=== PATIENT | female | born 1960 | race Caucasian/White ===

== ENCOUNTER 2025-10-27 08:30 | Outpatient (RCR) | payer OTHER, SELFPAY ==
--- NOTE | 2025-10-20 08:09 | PTNOTE_ITS ---
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 Since then it is painful especially at night and the pain interrupts sleep. Also when she reaches [place], lifts things like a soda and doing HH chores. PMH: Meniere's, high cholesterol, HTN, allergies Pt goal: to get rid of the pain Objective: R shoulder AROM: ? FF: 95 deg start of pain, 145 deg end range ? Abd: 95 deg with pain ? ER: 65 deg ? HBB: to R glute with pain ? Strength: 3+/5 in all planes ? PROM: end-range pain with capsular tightness ? painful arc: positive ? Empty can: positive ? Brush Bakari: positive ? Ruba's: positive Assessment: Pt presentation consistent with R shoulder impingement and had positive impingement testing today. Pt requires skilled therapy and has fair rehab potential to meet goals. PT recommends further diagnostic imaging of R shoulder such as MRI. 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 Ind with HEP ? 2. Improved AROM of R shoulder to at least 125 deg abduction and 90 deg ? ER ? 3. Improved HH chore tolerance to 40 mins with <=3/10 R shoulder pain ? 4. Pt will reach [place] x5 with <=3/10 pain Treatment Plan 1. Manual therapy ? 2. Therex ? 3. Modalities as indicated, moist heat pack, ice, electrical stimulation Frequency and Duration: 2x a week for 4 weeks Certification Dates: 10/20/25 to 01/18/25 Procedure Charges OP PT Eval Mod Complex 30 minutes: Yes
--- NOTE | 2025-10-22 18:27 | PT.ODAYNRPT ---
PT Outpatient Daily Note OP Daily Note Outpatient Physical Therapy Treatment Date: 10/22/25 Visit Reasons: right shoulder upper arm pain Subjective: Same as time of evaluation Objective: See F/S for therex Assessment: Good therex tolerance with therabands with low tissue irritability R shoulder. Plan: Continue per POC Length of Time (minutes) of Treatment: 30 Minutes Procedure Charges Therapeutic Exercise 30 minutes: Yes
--- NOTE | 2025-10-27 10:44 | PT.ODAYNRPT ---
PT Outpatient Daily Note OP Daily Note Outpatient Physical Therapy Treatment Date: 10/27/25 Visit Reasons: right shoulder upper arm pain Subjective: Some mild soreness with therapy but it feels good to stretch Objective: See F/S for therex Assessment: Good therex tolerance with therabands with low tissue irritability R shoulder. Improved ROM with AAROM therex into FF and abduction and ER. Plan: Continue per POC Length of Time (minutes) of Treatment: 30 Minutes Procedure Charges Therapeutic Exercise 30 minutes: Yes
== END 2025-11-05 23:59 | disposition home or self-care (01) ==
LOC: CPTX 08:30
PROVIDERS: PCP Physician Assistant; Referring Provider Physician Assistant; Visit Provider Physician Assistant
DX: M25.511 Pain in right shoulder (principal); S49.91XD Unspecified injury of right shoulder and upper arm, subsequent encounter; X50.1XXD Overexertion from prolonged static or awkward postures, subsequent encounter; I10 Essential (primary) hypertension
CPT/HCPCS: 97110; 97162